=== PATIENT | female | born 1930 | race Caucasian/White ===

== ENCOUNTER 2017-04-24 04:27 | Observation (INO) ==
--- NOTE | 2017-04-24 05:58 | Emergency Department Note ---
Disposition Clinical Impression: Nausea, History of seizures, Hyponatremia Medication side effect Qualifiers: Encounter type: initial encounter Qualified Code(s): T88.7XXA - Unspecified adverse effect of drug or medicament, initial encounter Disposition: Admitted As Inpatient Condition: Fair Referrals: Foster Villarreal MD [Primary Care Provider] - Forms: Work/School Release, ED Satisfaction Letter General Adult HPI - General Chief complaint: ED General Medical Stated complaint: multiple complaints s/p med change Time Seen by Provider: 04/24/17 05:42 Source: patient Mode of arrival: ambulatory Limitations: no limitations Nursing Notes Reviewed: Yes Vital Signs Reviewed: Yes - History of Present Illness HPI Narrative: 86-year-old female with a history of heart disease, epileptic seizures presents for evaluation of multiple complaints including diffuse muscle aches, nausea, epigastric discomfort as well as a headache. Patient states that the symptoms started immediately upon medication. This was confirmed by the family at bedside. Patient denies any fevers or shortness of breath. No cough. Patient' s been on Dilantin chronically for over 60 years. Patient wanted to get off the Dilantin and was seen by Dr. Posada neurology. Dr. Posada prescribed Trileptal. Patient states that she has had 2 days worth of Trileptal and notes the symptoms started. No seizure activity. Pain Scale: 7 - Related Data Home Medications Medication Instructions Recorded Confirmed Aspirin [Lo-Dose Aspirin EC] 81 mg PO 05/05/16 05/05/16 Cetirizine HCl [Zyrtec] 10 mg PO 05/05/16 Esomeprazole Magnesium [Nexium] 05/05/16 05/05/16 LORazepam [Ativan] 2.5 mg PO 05/05/16 Lisinopril [Zestril] 2.5 mg PO DAILY 05/05/16 05/05/16 Phenytoin Sodium Extended 100 mg PO 05/05/16 [Dilantin] Potassium Chloride [Potassium 05/05/16 Chloride 10 mEq/100mL] Rosuvastatin [Crestor] 40 mg PO HS 05/05/16 05/05/16 Previous Rx's Medication Instructions Recorded Ciprofloxacin [Cipro] 500 mg PO BID #20 tablet 05/05/16 Allergies Allergy/AdvReac Type Severity Reaction Status Date / Time cephalexin [From Keflex] Allergy See Verified 08/02/16 11:23 Comments clarithromycin [From Biaxin] Allergy See Verified 01/24/16 16:17 Comments acetaminophen AdvReac Dizziness Verified 05/05/16 11:23 [From Tylenol-Codeine #3] codeine AdvReac Dizziness Verified 05/05/16 11:23 [From Tylenol-Codeine #3] All systems ED: reviewed and negative except as stated. Constitutional: Reports: as per HPI. Denies: fever Eyes: Reports: as per HPI ENT ED: Reports: as per HPI Cardiovascular: Reports: as per HPI. Denies: chest pain Respiratory: Reports: as per HPI Gastrointestinal: Reports: as per HPI, nausea. Denies: abdominal pain, vomiting Genitourinary: Reports: as per HPI Musculoskeletal: Reports: as per HPI Integumentary: Reports: as per HPI Neurological: Reports: as per HPI Psychiatric: Reports: as per HPI Endocrine: Reports: as per HPI Hematological/Lymphatic: Reports: as per HPI Allergic/Immunologic: Reports: as per HPI Past Medical History - Past Medical History Medical history: Reports: GERD, hyperlipidemia, hypertension, seizures - Social History Smoking Status: Never smoker Smokeless Tobacco Status: No Alcohol use: Reports: none Drug use: Reports: none Physical Exam - General Limitations: no limitations General appearance: alert, in no apparent distress - Head Head exam: atraumatic, normocephalic, normal inspection - Eye Eye exam: Present: normal appearance, EOMI - ENT ENT exam: normal exam, mucous membranes moist - Neck Neck exam: Present: normal inspection - Chest Chest inspection: Present: normal inspection, symmetric chest wall rise - Respiratory Respiratory exam: Present: normal lung sounds bilaterally. Absent: respiratory distress - Cardiovascular Cardiovascular exam: Present: regular rate - Abdominal Exam Abdominal exam: Present: soft, Non-Tender - Extremities Exam Extremities exam: Present: normal inspection. Absent: pedal edema - Back Exam Back exam: Present: normal inspection - Neurological Exam Neurological exam: Present: alert, oriented X3 - Skin Skin exam: Present: warm, dry, intact, normal color Course Course Narrative: Patient seen and examined. Patient in no acute distress. Patient's symptoms possibly related to recent medication change however the patient does have risk factors and been having vague complaints with nausea as well as epigastric discomfort. Patient will get basic lab work including a troponin as well as EKG. Patient also gets symptomatic treatment with Zofran. Family at bedside agree with current plan of care. - Reevaluation(s) Reevaluation #1: Patient seen and examined. Patient is in no acute distress. Patient does have significant hyponatremia. Possibly related to medications. Given the degree of the patient's hyponatremia and her vague generalized complaints patient will be admitted to the hospitalist service for further evaluation. UA as well as urine Na urine Osm, urine Cr. Time: 06:39 Reevaluation #2: Updated family on plan of care. State that her medicine does have side effects of low sodium. QUESTIONS were answered. Time: 07:41 - Consultations Consultation #1: Hospitalist accepted the patient. Recommended to consult neurology regarding the patient's seizure medications. Will page neurology and place a consult. Time: 07:27 Consultation #2: Spoke with neurology, Dr. Villegas who stated that Trileptal does cause hyponatremia. States he will see the patient. Time: 07:40 Vital Signs Temperature 97.4 F L 04/24/17 04:30 Pulse Rate 67 04/24/17 04:30 Respiratory Rate 16 04/24/17 04:30 Blood Pressure 157/79 04/24/17 04:30 O2 Sat by Pulse Oximetry 96 04/24/17 04:30 Temperature 97.4 F L 04/24/17 04:30 Pulse Rate 67 04/24/17 04:30 Respiratory Rate 16 04/24/17 04:30 Blood Pressure 157/79 04/24/17 04:30 O2 Sat by Pulse Oximetry 96 04/24/17 04:30 Oxygen Delivery Oxygen Delivery Room Air Medical Decision Making - [facility] Narrative Medical decision making narrative: 86-year-old female presents for evaluation of multiple complaints. Patient was complaining of some nausea some epigastric discomfort. Noted symptom onset was possibly related to change and new medication. Patient's chronically on Dilantin and has transitioned to Trileptal. Patient states that she has had some muscle aches and fevers and nausea. Given the patient's history and vague complaints a cardiac evaluation was warranted. Patient's EKG shows no acute abnormalities. Patient's troponin was negative. Patient's electrolytes do show that she has chronic we hyponatremic however this is worse than prior evaluations. Patient will be admitted to the hospitalist service for further evaluation monitoring. Patient will likely need electrolyte replacement and monitoring. Family at bedside as well as patient agreed. Patient was treated with Zofran as well as a GI cocktail as for her reflux. Patient did not receive a chest x-ray she has not been having any respiratory complaints. No fevers or cough. Spoke with neurology who stated that Trileptal does cause hyponatremia. Patient will be admitted for electrolyte monitoring and replacement. - Lab Data Lab results reviewed: Yes I reviewed the patient's lab results. Result diagrams: 04/24/17 06:03 04/24/17 06:03 Lab Results 04/24/17 04/24/17 04/24/17 Range/Units 06:03 06:03 06:03 WBC 12.0 H (4.3-11.1) K/mcL RBC 4.31 (3.82-4.97) M/mcL Hgb 13.5 (11.5-15.4) g/dL Hct 38.5 (35.3-44.9) % MCV 89.3 (83.0-100.0) fL MCH 31.3 (28.0-33.3) pg MCHC 35.1 (31.6-35.5) g/dL RDW 11.6 (11.5-14.5) % Plt Count 223 (140-400) K/mcL MPV 9.1 L (9.4-12.4) fL Immature Gran % 0.2 (0-4) % Seg Neutrophils % 89.1 % Lymphocytes % 6.0 % Monocytes % 4.4 % Eosinophils % 0.1 % Basophils % 0.2 % Neutrophils # 10.7 H (1.6-8.9) K/mcL Lymphocytes # 0.7 (0.6-4.6) K/mcL Monocytes # 0.5 (0.0-1.3) K/mcL Eosinophils # 0.0 (0.0-0.6) K/mcL Basophils # 0.0 (0.0-0.2) K/mcL Sodium 123 L (136-145) mEq/L Potassium 4.0 (3.5-4.5) mEq/L Chloride 93 L (98-109) mEq/L Carbon Dioxide 24 (19-29) mEq/L BUN 7 (7-20) mg/dL Creatinine 0.62 (0.57-1.11) mg/dL Est GFR ( Amer) > 60 (> 60) Est GFR (Non-Af Amer) > 60 (> 60) BUN/Creatinine Ratio 11 (6-26) Glucose 126 H (70-99) mg/dL Calculated Osmolality 256 L (280-300) Calcium 9.0 (8.6-10.8) mg/dL Troponin I 0.00 (0-0.03) ng/mL Urine Color (Yellow) Urine Clarity (Clear) Urine pH (5.0-8.0) pH Units Ur Specific [place] (1.010-1.025) Urine Protein (Neg-Trace) mg/dL Urine Glucose (UA) (Normal) mg/dL Urine Ketones (Negative) mg/dL Urine Blood (Negative) Urine Nitrite (Negative) Urine Bilirubin (Negative) Urine Urobilinogen (Normal) mg/dL Ur Leukocyte Esterase (Negative) Urine Microscopic RBC (0-3) per hpf Urine Microscopic WBC (0-3) per hpf Ur Squamous Epith Cells (None-Few) per lpf Urine Bacteria (None-Few) per hpf Hyaline Casts (None-Few) per lpf 04/24/17 Range/Units 07:04 WBC (4.3-11.1) K/mcL RBC (3.82-4.97) M/mcL Hgb (11.5-15.4) g/dL Hct (35.3-44.9) % MCV (83.0-100.0) fL MCH (28.0-33.3) pg MCHC (31.6-35.5) g/dL RDW (11.5-14.5) % Plt Count (140-400) K/mcL MPV (9.4-12.4) fL Immature Gran % (0-4) % Seg Neutrophils % % Lymphocytes % % Monocytes % % Eosinophils % % Basophils % % Neutrophils # (1.6-8.9) K/mcL Lymphocytes # (0.6-4.6) K/mcL Monocytes # (0.0-1.3) K/mcL Eosinophils # (0.0-0.6) K/mcL Basophils # (0.0-0.2) K/mcL Sodium (136-145) mEq/L Potassium (3.5-4.5) mEq/L Chloride (98-109) mEq/L Carbon Dioxide (19-29) mEq/L BUN (7-20) mg/dL Creatinine (0.57-1.11) mg/dL Est GFR ( Amer) (> 60) Est GFR (Non-Af Amer) (> 60) BUN/Creatinine Ratio (6-26) Glucose (70-99) mg/dL Calculated Osmolality (280-300) Calcium (8.6-10.8) mg/dL Troponin I (0-0.03) ng/mL Urine Color Yellow (Yellow) Urine Clarity Cloudy A (Clear) Urine pH 7.0 (5.0-8.0) pH Units Ur Specific [place] 1.017 (1.010-1.025) Urine Protein Negative (Neg-Trace) mg/dL Urine Glucose (UA) Normal (Normal) mg/dL Urine Ketones Trace H (Negative) mg/dL Urine Blood Trace H (Negative) Urine Nitrite Negative (Negative) Urine Bilirubin Negative (Negative) Urine Urobilinogen Normal (Normal) mg/dL Ur Leukocyte Esterase Negative (Negative) Urine Microscopic RBC 0-3 (0-3) per hpf Urine Microscopic WBC 0-3 (0-3) per hpf Ur Squamous Epith Cells Many H (None-Few) per lpf Urine Bacteria None Seen (None-Few) per hpf Hyaline Casts None Seen (None-Few) per lpf - EKG Data EKG #1 EKG attestation: Yes I reviewed and interpreted this EKG. EKG shows normal: sinus rhythm Rate: normal Rhythm: NSR [place]/QRS: normal Q waves: aVR, v1, v2 Interpretation: no acute changes S.B.A.R. - S.B.A.R. Situation: Demographics Background: Presenting Complaint Assessment: Vital Signs, Course and respsone to treatment Recommendation: Barrier(s) to disposition, Recommendation based on pending studies, treatments, or consults S.B.A.R. Report Given to: Dr. Baig S.B.A.RFadumo Repor Time: 07:27 Attestation Statement - Attestation Attestation: I, Clarke Hardin MD, personally evaluated this patient and discussed their management with the resident physician. I reviewed the resident's note and agree with the documented findings, medical decision making, and plan of care. 86-year-old female presents to the emergency department with multiple vague complaints. She has a long history of seizure disorder and states that she has been on Dilantin for 60 years. Earlier this week her Dilantin was discontinued and she was switched to a different medication. She reports that when she started taking the new medication she developed nausea and upper abdominal discomfort. She complains of some generalized body aches. Subjective fever. She feels this is related to the medication. On examination patient is a well-developed well-nourished elderly female in no acute distress. She is alert and oriented 3. There is no cyanosis or diaphoresis. Chest is nontender to palpation. Breath sounds are clear and equal bilaterally. Heart regular rate and rhythm. Abdomen soft and nontender with normal bowel sounds. Labs reviewed. Hyponatremia with sodium of 123 noted. Hospitalist consulted for admission.
[2017-04-24] MEDS ORDERED: Ondansetron ODT 4 MG TAB.RAPDIS SL ONE (05:59)
[2017-04-24 06:11] LABS: Basophils % 0.2 %; Eosinophils % 0.1 %; Hematocrit 38.5 % (35.3-44.9); Hemoglobin 13.5 g/dL (11.5-15.4); Immature Granulocytes % 0.2 % (0-4); Lymphocytes # 0.7 K/mcL (0.6-4.6); Mean Corpuscular HGB Conc 35.1 g/dL (31.6-35.5); Mean Corpuscular Hemoglobin 31.3 pg (28.0-33.3); Mean Corpuscular Volume 89.3 fL (83.0-100.0); Mean Platelet Volume 9.1 fL (9.4-12.4); Monocytes # 0.5 K/mcL (0.0-1.3); Monocytes % 4.4 %; Neutrophils # 10.7 K/mcL (1.6-8.9); Platelet Count 223 K/mcL (140-400); Red Blood Count 4.31 M/mcL (3.82-4.97); Red Cell Distribution Width 11.6 % (11.5-14.5); Segmented Neutrophils % 89.1 %
[2017-04-24] MEDS ORDERED: GI Cocktail 40 ML EACH PO ONE (06:15)
[2017-04-24 06:22] LABS: BUN/Creatinine Ratio 11 (6-26); Blood Urea Nitrogen 7 mg/dL (7-20); Carbon Dioxide 24 mEq/L (19-29); Chloride 93 mEq/L (98-109); Glucose 126 mg/dL (70-99); Osmolality,Calculated 256 (280-300); Sodium 123 mEq/L (136-145); eGFR For African Americans > 60 (> 60); eGFR For Non-African Americans > 60 (> 60)
[2017-04-24] MEDS ORDERED: 0.9 % Sodium Chloride 1,000 ML IVC ONE (06:38)
[2017-04-24 07:10] LABS: Bilirubin,Urine Negative (Negative); Blood,Urine Trace (Negative); Clarity,Urine Cloudy (Clear); Color,Urine Yellow (Yellow); Glucose,Urine (UA) Normal (Normal); Ketones,Urine Trace mg/dL (Negative); Leukocyte Esterase,Urine Negative (Negative); Nitrite,Urine Negative (Negative); Protein,Urine Negative (Neg-Trace); Specific Gravity,Urine 1.017 (1.010-1.025); Urobilinogen,Urine Normal (Normal)
[2017-04-24 07:13] LABS: Bacteria,Urine None Seen per hpf (None-Few); Hyaline Casts,Urine None Seen per lpf (None-Few); RBC,Urine 0-3 per hpf (0-3); Squamous Epithelial Cell,Urine Many per lpf (None-Few); WBC,Urine 0-3 per hpf (0-3)
[2017-04-24] MEDS ORDERED: Naloxone 0.4 MG/ML INJ IVP PRN (09:18)
[2017-04-24] MEDS ORDERED: Ondansetron ODT 4 MG TAB.RAPDIS SL PRN (09:24)
[2017-04-24] MEDS ORDERED: *HR* LORazepam 2 MG/ML VIAL IVP PRN (09:31)
[2017-04-24] MEDS ORDERED: GI Cocktail 40 ML EACH PO PRN (09:33)
[2017-04-24 09:43] LABS: Magnesium 1.5 mg/dL (1.6-2.6)
--- NOTE | 2017-04-24 09:46 | Internal Med History&Physical ---
Date of Encounter: 04/24/17 Time of Encounter: 09:00 Assessment and Plan (1) DVT prophylaxis Current visit: Yes Status: Acute Heparin subcutaneously (2) Hypertension Current visit: Yes Status: Acute Continue home medication. Closely monitor BP Qualifiers: Hypertension type: essential hypertension Qualified Code(s): I10 - Essential (primary) hypertension (3) CAD (coronary artery disease) Current visit: Yes Status: Acute Stable, denies chest pain. Continue home medications Qualifiers: Coronary Disease-Associated Artery/Lesion type: [place] artery [place] vs. transplanted heart: lime heart Associated angina: without angina Qualified Code(s): I25.10 - Atherosclerotic heart disease of lime coronary artery without angina pectoris (4) History of seizures Current visit: Yes Status: Acute The patient has history of seizure. No recent seizure activity for years. Will consult neurology. Place ativan IV as needed for seizure. (5) Hyponatremia Current visit: Yes Status: Acute Etiology is undetermined. Patient appears euvolemic. We will place patient on low rate normal saline and fluid restriction. - Closely monitor sodium level. Goal of correction is 8-10 mEq increase in first 24 hours. (6) Medication side effect Current visit: Yes Status: Acute We will hold Oxcarbazepin, closely monitor vital sign. Supportive and symptomatic treatment. Neurology consult for medication adjustment. Qualifiers: Encounter type: initial encounter Qualified Code(s): T88.7XXA - Unspecified adverse effect of drug or medicament, initial encounter Internal Medicine - H&P: HPI Chief complaint: Multiple complaints Admitted From: Home Plans for Post Hospital Care: Home History of present illness: Ms. Nicolas is a 86 year old female presented to the ER for multiple complaint. Patient has history of seizure and was on Dilantin for about 60 years. Patient has developed neuropathy and was sought cousin by [place]. Her Dilantin has been changed to oxycarbazepin by her neurologist Dr Posada. Patient said after taking the new medication, she feels dizzy, weak, had a shaking, sweating, heartburn and the reflex, mild nausea. Patient came to ER and was found sodium low to 123. Patient denies polydipsia. She was admitted for further evaluation. Past Med Surg Social Fam HX - Past Medical History Medical history: GERD, hyperlipidemia, hypertension, seizures - Social History Smoking Status: Never smoker Smokeless Tobacco Status: No Alcohol use: none Drug use: none Internal Medicine - H&P: Meds Aspirin [Lo-Dose Aspirin EC] 81 mg PO 05/05/16 [History] Cetirizine HCl [Zyrtec] 10 mg PO 05/05/16 [History] Ciprofloxacin [Cipro] 500 mg PO BID #20 tablet 05/05/16 [Rx] Esomeprazole Magnesium [Nexium] 05/05/16 [History] LORazepam [Ativan] 2.5 mg PO 05/05/16 [History] Lisinopril [Zestril] 2.5 mg PO DAILY 05/05/16 [History] Phenytoin Sodium Extended [Dilantin] 100 mg PO 05/05/16 [History] Potassium Chloride [Potassium Chloride 10 mEq/100mL] 05/05/16 [History] Rosuvastatin [Crestor] 40 mg PO HS 05/05/16 [History] Allergies cephalexin [From Keflex] Allergy (Verified 05/05/16 11:23) See Comments clarithromycin [From Biaxin] Allergy (Verified 01/24/16 16:17) See Comments acetaminophen [From Tylenol-Codeine #3] Adverse Reaction (Verified 05/05/16 11: 23) Dizziness codeine [From Tylenol-Codeine #3] Adverse Reaction (Verified 05/05/16 11:23) Dizziness All Systems PM: A 10-system review of systems was performed and is negative for pertinent findings except as documented above in the HPI. - Constitutional Vitals: Temp Pulse Resp BP Pulse Ox 97.4 F L 67 18 141/75 96 04/24/17 04:30 04/24/17 04:30 04/24/17 08:56 04/24/17 08:56 04/24/17 04:30 General appearance: Present: A&O X 3, no acute distress, answers questions appropriately - Head Head exam: Present: atraumatic, normocephalic - Eye Eye exam: Present: PERRL, conjuntiva pink, sclera anicteric Pupils: Present: PERRL - Neck Neck exam general surgery: Present: supple, trachea midline. Absent: lymphadenopathy - Respiratory Respiratory exam: Present: CTAB. Absent: accessory muscle use, rales, rhonchi, wheezes - Cardiovascular Cardiovascular exam: Present: RRR, +S1, +S2. Absent: diastolic murmur, gallop, rubs, systolic murmur - GI/Abdominal GI/Abdominal exam: Present: normal bowel sounds, soft, no peritoneal signs. Absent: distended, tenderness - Extremities Exam Extremities exam: Present: warm, radial pulses palpable and symetrical. Absent : calf tenderness, cyanotic, pedal edema - Neurological Exam Neurological exam: Present: CN II-XII intact, oriented X3, no focal deficits. Absent: pronater drift, facial droop, speech deficit - Skin Skin exam: Present: dry, intact Internal Med - H&P Results - Labs CBC & Chem 7: 04/24/17 06:03 04/24/17 06:03
[2017-04-24] MEDS: 0.9 % Sodium Chloride 1,000 ML IVC SCH (09:58)
[2017-04-24] MEDS: Aspirin Enteric Coated 81 MG Tablet PO SCH (09:59)
[2017-04-24] MEDS: Loratadine 10 MG TABLET PO SCH (09:59)
[2017-04-24 10:03] LABS: Creatinine,Urine 48 mg/dL
[2017-04-24 10:24] LABS: Osmolality,Urine 544 mOsm/kg (300-1090)
[2017-04-24] MEDS ORDERED: Fosphenytoin 1,000 MG in D5% in Water 50 ML IVPB ONE (10:37)
--- NOTE | 2017-04-24 10:58 | Neurology - Consult Note ---
Date of Encounter: 04/24/17 Time of Encounter: 10:49 Assessment and Plan (1) Hyponatremia Current Visit: Yes Status: Acute 86-year old woman with epilepsy, on chronic dilatin, now recently changed to trileptal, admitted with hyponatremia, likely secondary to trileptal treatment ( known adverse effect). Hyponatremia correction per hospitalist. (2) History of seizures Current Visit: Yes Status: Acute Patient prefers to go back to dilantin. Will load her with IV fosphenytoin, 1g , and then follow it up with dilanting 300 mg po qhs. Will check dilantin level in the morning. Upon discharge, patient can be on 300 mg regular release tablets. Follow-up with Dr. Posada in the outpatient setting in the next week. 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 Gabapentin 300 qhs for symptom control. PT/OT for gait stability training and walker, if needed. History of Present Illness Chief complaint: feeling dizzy and unsteady HPI: Ms. Nicolas is a 86 year old female with prior history of epilepsy ( multiple seizure types, including grand mal), On dilantin for the last 60 years with good control. She started noticing some numbness in the feet recently, accompanied with burning and "pins and needles" in the last few months. She was worried if dilantin was causing this and wanted to come off of dilantin. She saw Dr. Posada in the outpatient clinic who advocated the switch to tripleptal. After she took the medication for 2 days, she felt dizzy, lightheaded and not feeling well. No fevers, chills, infections. She was found to have a low sodium of 120 and was admitted to the hospital. She is wondering if she should go back to dilantin. She states that her feet are numb and that her finger tips are getting numb as well. She has some unsteadiness, but has not had any falls. Past Med Surg Social Fam HX - Past Medical History Medical history: GERD, hyperlipidemia, hypertension, seizures Psychiatric history: anxiety - Past Surgical History Surgical History: cholecystectomy - Social History Smoking Status: Never smoker Smokeless Tobacco Status: No Alcohol use: none Drug use: none - Family History Mother Living Status: Age at : 96 Hx Family Neurologic Disorders: Yes (stroke) Hx Family Medical Disorders: Yes (cataracts) Father Living Status: Age at : 70 Hx Family Cardiac Disorders: Yes Hx Family Cancer: Yes Medications and Allergies Aspirin [Lo-Dose Aspirin EC] 81 mg PO DAILY 05/05/16 [History] Cetirizine HCl [Zyrtec] 10 mg PO DAILY 05/05/16 [History] Esomeprazole Magnesium [Nexium] 40 mg PO DAILY 05/05/16 [History] LORazepam [Ativan] 0.5 mg PO DAILY PRN 05/05/16 [History] Lisinopril [Zestril] 2.5 mg PO DAILY 05/05/16 [History] Phenytoin Sodium Extended [Dilantin] 100 mg PO TID 05/05/16 [History] Rosuvastatin [Crestor] 40 mg PO DAILY 05/05/16 [History] Ergocalciferol (VITAMIN D2) [Vitamin D2] 50,000 unit PO MO 04/24/17 [History] OXcarbazepine [Trileptal] 150 mg PO BID 04/24/17 [History] Polyethylene Glycol 3350 [MiraLAX] 17 gm PO DAILY 04/24/17 [History] Potassium Chloride [Klor-Con 10] 10 meq PO BID 04/24/17 [History] Allergies cephalexin [From Keflex] Allergy (Verified 05/05/16 11:23) See Comments clarithromycin [From Biaxin] Allergy (Verified 01/24/16 16:17) See Comments acetaminophen [From Tylenol-Codeine #3] Adverse Reaction (Verified 05/05/16 11: 23) Dizziness codeine [From Tylenol-Codeine #3] Adverse Reaction (Verified 05/05/16 11:23) Dizziness All Systems: A 10-system review of systems was performed and is negative for pertinent findings except as documented above in the HPI. - Constitutional Constitutional ROS IM: as per HPI Physical Examination - Vital Signs Vital Signs: Initial Vital Signs Temp Pulse Resp BP Pulse Ox 97.4 F L 67 16 157/79 96 04/24/17 04:30 04/24/17 04:30 04/24/17 04:30 04/24/17 04:30 04/24/17 04:30 Vital Signs - 24 hr 04/24/17 04:30 04/24/17 08:56 04/24/17 09:41 Temperature 97.4 F L Pulse Rate 67 Respiratory Rate 16 18 Blood Pressure 157/79 141/75 O2 Sat by Pulse Oximetry 96 96 04/24/17 09:43 Temperature 98.1 F Pulse Rate 67 Respiratory Rate 15 Blood Pressure 155/65 O2 Sat by Pulse Oximetry 96 - Exam Exam: Frail, thin woman of stated age, pleasant and cooperative. - Constitutional General appearance: comfortable - Neurologic Sensorimotor examination: other (decreased distally for light touch, pin prick and vibration) Detailed motor examination: grossly full strength in all extremities Motor examination - right side: 5/5: deltoids (appropriate for age and condition ), biceps, triceps, wrist flexion, wrist extension, remote sensing analyst, hip flexors, tibialis Anterior, quadriceps, toe extension (EHL), plantarflexion Motor examination - left side: 5/5: deltoids (appropriate for age and condition) , biceps, triceps, wrist flexion, wrist extension, hip flexors, remote sensing analyst, quadriceps , tibialis Anterior, toe extension (EHL), plantarflexion Detailed sensory examination: other (decreased distally in upper and lower extremities) Reflex and gait examination: other (areflexia) Reflexes: Biceps: 0, Triceps: 0, Brachioradialis: 0, Patella: 0, Achilles: 0 Mental Status Examination: awake, alert, oriented to person, oriented to place, oriented to time, follows commands appropriately, answers questions appropriately, no agnosia, no aphasia, no aproxia Cranial nerve examination: PERRL, EOMI, visual mendiola intact, corneal reflexes brisk symmetrically, sensory to face intact, mastication intact, no facial asymmetry is present, no dysarthria, hearing is intact symmetrically, soft palate elevates bilaterally upon phonation, gag reflex intact, flexes SCM and trapezius muscles symmetrically with full power, tongue protrudes midline, no atrophy or facial fasiculations present Cerebellar examination: no dysmetria, performs finger to nose and heel to yung symmetrically without ataxia, no gait ataxia, no truncal ataxia, no difficulty with rapid alternating movements Results - Laboratory Findings CBC and BMP: 04/24/17 06:03 04/24/17 06:03 Abnormal lab findings: Abnormal lab results WBC 12.0 K/mcL (4.3-11.1) H 04/24/17 06:03 MPV 9.1 fL (9.4-12.4) L 04/24/17 06:03 Neutrophils # 10.7 K/mcL (1.6-8.9) H 04/24/17 06:03 Sodium 123 mEq/L (136-145) L 04/24/17 06:03 Chloride 93 mEq/L (98-109) L 04/24/17 06:03 Glucose 126 mg/dL (70-99) H 04/24/17 06:03 Calculated Osmolality 256 (280-300) L 04/24/17 06:03 Magnesium 1.5 mg/dL (1.6-2.6) L 04/24/17 06:03 Urine Clarity Cloudy (Clear) A 04/24/17 07:04 Urine Ketones Trace mg/dL (Negative) H 04/24/17 07:04 Urine Blood Trace (Negative) H 04/24/17 07:04 Ur Squamous Epith Cells Many per lpf (None-Few) H 04/24/17 07:04 Laboratory Results WBC 12.0 K/mcL (4.3-11.1) H 04/24/17 06:03 RBC 4.31 M/mcL (3.82-4.97) 04/24/17 06:03 Hgb 13.5 g/dL (11.5-15.4) 04/24/17 06:03 Hct 38.5 % (35.3-44.9) 04/24/17 06:03 MCV 89.3 fL (83.0-100.0) 04/24/17 06:03 MCH 31.3 pg (28.0-33.3) 04/24/17 06:03 MCHC 35.1 g/dL (31.6-35.5) 04/24/17 06:03 RDW 11.6 % (11.5-14.5) 04/24/17 06:03 Plt Count 223 K/mcL (140-400) 04/24/17 06:03 MPV 9.1 fL (9.4-12.4) L 04/24/17 06:03 Immature Gran % 0.2 % (0-4) 04/24/17 06:03 Seg Neutrophils % 89.1 % 04/24/17 06:03 Lymphocytes % 6.0 % 04/24/17 06:03 Monocytes % 4.4 % 04/24/17 06:03 Eosinophils % 0.1 % 04/24/17 06:03 Basophils % 0.2 % 04/24/17 06:03 Neutrophils # 10.7 K/mcL (1.6-8.9) H 04/24/17 06:03 Lymphocytes # 0.7 K/mcL (0.6-4.6) 04/24/17 06:03 Monocytes # 0.5 K/mcL (0.0-1.3) 04/24/17 06:03 Eosinophils # 0.0 K/mcL (0.0-0.6) 04/24/17 06:03 Basophils # 0.0 K/mcL (0.0-0.2) 04/24/17 06:03 Sodium 123 mEq/L (136-145) L 04/24/17 06:03 Potassium 4.0 mEq/L (3.5-4.5) 04/24/17 06:03 Chloride 93 mEq/L (98-109) L 04/24/17 06:03 Carbon Dioxide 24 mEq/L (19-29) 04/24/17 06:03 BUN 7 mg/dL (7-20) 04/24/17 06:03 Creatinine 0.62 mg/dL (0.57-1.11) 04/24/17 06:03 Est GFR ( Amer) > 60 (> 60) 04/24/17 06:03 Est GFR (Non-Af Amer) > 60 (> 60) 04/24/17 06:03 BUN/Creatinine Ratio 11 (6-26) 04/24/17 06:03 Glucose 126 mg/dL (70-99) H 04/24/17 06:03 Calculated Osmolality 256 (280-300) L 04/24/17 06:03 Calcium 9.0 mg/dL (8.6-10.8) 04/24/17 06:03 Magnesium 1.5 mg/dL (1.6-2.6) L 04/24/17 06:03 Troponin I 0.00 ng/mL (0-0.03) 04/24/17 06:03 Urine Color Yellow (Yellow) 04/24/17 07:04 Urine Clarity Cloudy (Clear) A 04/24/17 07:04 Urine pH 7.0 pH Units (5.0-8.0) 04/24/17 07:04 Ur Specific [place]son 1.017 (1.010-1.025) 04/24/17 07:04 Urine Protein Negative mg/dL (Neg-Trace) 04/24/17 07:04 Urine Glucose (UA) Normal mg/dL (Normal) 04/24/17 07:04 Urine Ketones Trace mg/dL (Negative) H 04/24/17 07:04 Urine Blood Trace (Negative) H 04/24/17 07:04 Urine Nitrite Negative (Negative) 04/24/17 07:04 Urine Bilirubin Negative (Negative) 04/24/17 07:04 Urine Urobilinogen Normal mg/dL (Normal) 04/24/17 07:04 Ur Leukocyte Esterase Negative (Negative) 04/24/17 07:04 Urine Microscopic RBC 0-3 per hpf (0-3) 04/24/17 07:04 Urine Microscopic WBC 0-3 per hpf (0-3) 04/24/17 07:04 Ur Squamous Epith Cells Many per lpf (None-Few) H 04/24/17 07:04 Urine Bacteria None Seen per hpf (None-Few) 04/24/17 07:04 Hyaline Casts None Seen per lpf (None-Few) 04/24/17 07:04 Urine Osmolality 544 mOsm/kg (300-1090) 04/24/17 07:04 Urine Creatinine 48 mg/dL 04/24/17 07:04 Urine Sodium 144.0 mEq/L 04/24/17 07:04 Consult Discharge Plan - Plan Referrals: Foster Villarreal MD [Primary Care Provider] -
[2017-04-24] MEDS ORDERED: *HR* LORazepam 1 MG TABLET PO ONE (12:43)
[2017-04-24 12:52] LABS: BUN/Creatinine Ratio 10 (6-26); Blood Urea Nitrogen 6 mg/dL (7-20); Calcium 8.9 mg/dL (8.6-10.8); Carbon Dioxide 21 mEq/L (19-29); Chloride 96 mEq/L (98-109); Glucose 126 mg/dL (70-99); Osmolality,Calculated 263 (280-300); Sodium 127 mEq/L (136-145); eGFR For African Americans > 60 (> 60); eGFR For Non-African Americans > 60 (> 60)
[2017-04-24] MEDS: *HR* Heparin 5,000 UNIT/ML VIAL SQ SCH (17:39)
[2017-04-24 18:32] LABS: BUN/Creatinine Ratio 9 (6-26); Blood Urea Nitrogen 6 mg/dL (7-20); Calcium 8.5 mg/dL (8.6-10.8); Carbon Dioxide 25 mEq/L (19-29); Chloride 95 mEq/L (98-109); Glucose 156 mg/dL (70-99); Osmolality,Calculated 263 (280-300); Potassium 3.3 mEq/L (3.5-4.5); Sodium 126 mEq/L (136-145); eGFR For African Americans > 60 (> 60); eGFR For Non-African Americans > 60 (> 60)
[2017-04-24] MEDS: Gabapentin 300 MG CAPSULE PO SCH (22:00)
[2017-04-25 01:28] LABS: Basophils % 0.2 %; Eosinophils % 0.3 %; Hematocrit 35.1 % (35.3-44.9); Immature Granulocytes % 0.5 % (0-4); Lymphocytes # 1.4 K/mcL (0.6-4.6); Mean Corpuscular HGB Conc 34.2 g/dL (31.6-35.5); Mean Corpuscular Hemoglobin 30.8 pg (28.0-33.3); Mean Corpuscular Volume 90.2 fL (83.0-100.0); Mean Platelet Volume 9.4 fL (9.4-12.4); Monocytes # 0.6 K/mcL (0.0-1.3); Monocytes % 9.5 %; Neutrophils # 4.4 K/mcL (1.6-8.9); Platelet Count 220 K/mcL (140-400); Red Blood Count 3.89 M/mcL (3.82-4.97); Red Cell Distribution Width 11.9 % (11.5-14.5); Segmented Neutrophils % 67.5 %
[2017-04-25 01:41] LABS: BUN/Creatinine Ratio 10 (6-26); Blood Urea Nitrogen 6 mg/dL (7-20); Calcium 8.5 mg/dL (8.6-10.8); Carbon Dioxide 27 mEq/L (19-29); Chloride 96 mEq/L (98-109); Glucose 94 mg/dL (70-99); Osmolality,Calculated 259 (280-300); Potassium 3.3 mEq/L (3.5-4.5); Sodium 126 mEq/L (136-145); eGFR For African Americans > 60 (> 60); eGFR For Non-African Americans > 60 (> 60)
[2017-04-25] MEDS: 0.9 % Sodium Chloride 1,000 ML IVC SCH (03:09)
[2017-04-25] MEDS: *HR* Heparin 5,000 UNIT/ML VIAL SQ SCH ×2 (06:01→17:49)
[2017-04-25 07:36] LABS: BUN/Creatinine Ratio 8 (6-26); Calcium 8.4 mg/dL (8.6-10.8); Carbon Dioxide 27 mEq/L (19-29); Chloride 98 mEq/L (98-109); Glucose 96 mg/dL (70-99); Osmolality,Calculated 269 (280-300); Potassium 3.5 mEq/L (3.5-4.5); Sodium 131 mEq/L (136-145); eGFR For African Americans > 60 (> 60); eGFR For Non-African Americans > 60 (> 60)
[2017-04-25 07:38] LABS: Blood Urea Nitrogen 5 mg/dL (7-20)
[2017-04-25] MEDS: Aspirin Enteric Coated 81 MG Tablet PO SCH (07:41)
[2017-04-25] MEDS: Loratadine 10 MG TABLET PO SCH (07:41)
--- NOTE | 2017-04-25 09:02 | Neurology Progress Note ---
Date of Encounter: 04/25/17 Time of Encounter: 08:59 Assessment and Plan (1) Hyponatremia Current Visit: Yes Status: Acute 86-year old woman with epilepsy, on chronic dilatin, now recently changed to trileptal, admitted with hyponatremia, likely secondary to trileptal treatment ( known adverse effect). Hyponatremia correction per hospitalist. Doing better, last Na was 131. Will need to correct to normal levels. (2) History of seizures Current Visit: Yes Status: Acute Patient prefers to go back to dilantin. Will load her with IV fosphenytoin, 1g , and then follow it up with dilanting 300 mg po qhs. Will check dilantin level in the morning. Upon discharge, patient can be on 300 mg regular release tablets. Tolerating dilantin well. Level 16.9 today. Follow-up with Dr. Posada in the outpatient setting in the next week. 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 Gabapentin 300 qhs for symptom control. Tolerating gabapentin very well. PT/OT for gait stability training and walker, if needed. call if questions. Subjective Principal diagnosis: hyponatremia, dizziness, neuropathy Interval history: Patient is doing better today. She still has some dizziness when standing - that has been there even before the start of gabapentin. Overall she is in good spirits and doing well. She is eating well today. Objective - Constitutional Vitals: Temp Pulse Resp BP Pulse Ox 98.6 F 79 15 135/79 93 04/25/17 07:25 04/25/17 07:25 04/25/17 07:25 04/25/17 07:25 04/25/17 07:47 Vital Signs - 24 hr 04/24/17 09:41 04/24/17 09:43 04/24/17 15:59 Temperature 98.1 F 98.5 F Pulse Rate 67 71 Respiratory Rate 15 15 Blood Pressure 155/65 111/60 O2 Sat by Pulse Oximetry 96 96 96 04/24/17 19:38 04/24/17 23:13 04/25/17 03:24 Temperature 97.6 F 98.4 F 97.8 F Pulse Rate 86 70 65 Respiratory Rate 15 14 16 Blood Pressure 114/70 124/62 116/67 O2 Sat by Pulse Oximetry 97 97 96 04/25/17 07:25 04/25/17 07:47 Temperature 98.6 F Pulse Rate 79 Respiratory Rate 15 Blood Pressure 135/79 O2 Sat by Pulse Oximetry 93 93 General appearance: Present: cooperative, A&O X 3, no acute distress, answers questions appropriately - Head Head exam: Present: atraumatic, normocephalic - Eye Eye exam: Present: PERRL, conjuntiva pink, sclera anicteric Pupils: Present: PERRL - Extremities Exam Extremities exam: Present: warm, radial pulses palpable and symetrical. Absent : calf tenderness, cyanotic, pedal edema - Neurological Exam Sensorimotor examination: Present: other (decreased distally for light touch, pin prick and vibration) Motor Examination: Present: grossly full strength in all extremities Motor examination - left side: 5/5: deltoids (appropriate for age and condition) , biceps, triceps, wrist flexion, wrist extension, hip flexors, real time operator, quadriceps , tibialis Anterior, toe extension (EHL), plantarflexion Sensation intact: Present: other (decreased distally in upper and lower extremities) Reflex and gait examination: other (areflexia) Mental Status Examination: Present: awake, alert, oriented to person, oriented to place, oriented to time, follows commands appropriately, answers questions appropriately, no agnosia, no aphasia, no aproxia Cranial nerve examination: Present: PERRL, EOMI, visual mendiola intact, corneal reflexes brisk symmetrically, sensory to face intact, mastication intact, no facial asymmetry is present, no dysarthria, hearing is intact symmetrically, soft palate elevates bilaterally upon phonation, gag reflex intact, flexes SCM and trapezius muscles symmetrically with full power, tongue protrudes midline, no atrophy or facial fasiculations present Cerebellar examination: Present: no dysmetria, performs finger to nose and heel to yung symmetrically without ataxia, no gait ataxia, no truncal ataxia, no difficulty with rapid alternating movements Results - Laboratory Findings CBC and BMP: 04/25/17 00:55 04/25/17 06:09 Abnormal lab findings: Abnormal lab results Hct 35.1 % (35.3-44.9) L 04/25/17 00:55 Sodium 131 mEq/L (136-145) L 04/25/17 06:09 BUN 5 mg/dL (7-20) L 04/25/17 06:09 Calculated Osmolality 269 (280-300) L 04/25/17 06:09 Calcium 8.4 mg/dL (8.6-10.8) L 04/25/17 06:09 Magnesium 1.5 mg/dL (1.6-2.6) L 04/24/17 06:03 Urine Clarity Cloudy (Clear) A 04/24/17 07:04 Urine Ketones Trace mg/dL (Negative) H 04/24/17 07:04 Urine Blood Trace (Negative) H 04/24/17 07:04 Ur Squamous Epith Cells Many per lpf (None-Few) H 04/24/17 07:04 Consult Discharge Plan - Plan Referrals: Foster Villarreal MD [Primary Care Provider] -
[2017-04-25 14:26] LABS: BUN/Creatinine Ratio 12 (6-26); Blood Urea Nitrogen 8 mg/dL (7-20); Calcium 8.5 mg/dL (8.6-10.8); Carbon Dioxide 29 mEq/L (19-29); Chloride 98 mEq/L (98-109); Glucose 102 mg/dL (70-99); Osmolality,Calculated 271 (280-300); Potassium 3.6 mEq/L (3.5-4.5); Sodium 131 mEq/L (136-145); eGFR For African Americans > 60 (> 60); eGFR For Non-African Americans > 60 (> 60)
--- NOTE | 2017-04-25 18:01 | Internal Med Progress Note ---
Date of Encounter: 04/25/17 Time of Encounter: 12:00 - Assessment and plan (1) Dizziness Current Visit: Yes Status: Acute Assessment and plan: patient reports dizziness, if she sits up or stands up she feels a heavy pressure on her head that bends her heads forward and she then falls. no vertigo. no chest pain. no shortness of breath. could be secondary to hyponatremia and side effect from trileptal. will continue gabapentin. hold trileptal. if dizziness persist in AM. i will order ct head. (2) Hyponatremia Current Visit: Yes Status: Acute Assessment and plan: Hypovolemic hyponatremia. Patient has seizure and was prescribed recently Trileptal. She was taking before dilantin. Soon after taking Trileptal, she felt dizzy, weak, and mild nausea. In our ED, her Na was 123. Received IV fluids. Na is 131 today. orthostatics are negative. stop IV fluids. continue fluid restriction. holding trileptal. close monitor. (3) History of seizures Current Visit: Yes Status: Chronic Assessment and plan: Appreciate neurology input. Stop Trileptal. Start dilantin. f/u in neurology clinic. (4) Hypertension Current Visit: Yes Status: Acute Assessment and plan: Bp is adequate. hold lisinopril home dose. Qualifiers: Hypertension type: essential hypertension Qualified Code(s): I10 - Essential (primary) hypertension (5) CAD (coronary artery disease) Current Visit: Yes Status: Chronic Assessment and plan: stable. continue home meds. Qualifiers: Coronary Disease-Associated Artery/Lesion type: [place] artery [place] vs. transplanted heart: [place] heart Associated angina: without angina Qualified Code(s): I25.10 - Atherosclerotic heart disease of [place] coronary artery without angina pectoris (6) Neuropathy Current Visit: Yes Status: Chronic Assessment and plan: continue gabapentin - Subjective Interval history: patient reports dizziness, if she sits up or stands up she feels a heavy pressure on her head that bends her heads forward and she then falls. no vertigo. no chest pain. no shortness of breath. - Constitutional Vitals: Temp Pulse Resp BP Pulse Ox 99 F 68 16 127/76 95 04/25/17 15:21 04/25/17 15:21 04/25/17 15:21 04/25/17 15:21 04/25/17 15:21 General appearance: Present: cooperative, A&O X 3, pleasant, no acute distress, answers questions appropriately Exam: patient sit up and developed mild dizziness, she lean back immediately. - Neck Neck exam general surgery: Present: supple, trachea midline. Absent: lymphadenopathy - Respiratory Respiratory exam: Present: CTAB - Cardiovascular Cardiovascular exam: Present: RRR - GI/Abdominal GI/Abdominal exam: Present: normal bowel sounds, soft. Absent: distended, tenderness - Extremities Exam Extremities exam: Absent: pedal edema - Back Exam Back exam: Absent: CVA tenderness (L), CVA tenderness (R) - Neurological Exam Neurological exam: Present: alert, oriented X3. Absent: facial droop, speech deficit - Skin Skin exam: Absent: rash Internal Medicine: Result - Labs CBC & Chem 7: 04/25/17 00:55 04/25/17 13:19 Labs: Short CBC 04/25/17 Range/Units 00:55 WBC 6.4 (4.3-11.1) K/mcL Hgb 12.0 D (11.5-15.4) g/dL Hct 35.1 L (35.3-44.9) % Plt Count 220 (140-400) K/mcL Neutrophils # 4.4 (1.6-8.9) K/mcL BMP 04/24/17 04/25/17 04/25/17 18:15 00:55 06:09 Sodium 126 L 126 L 131 L Potassium 3.3 L 3.3 L 3.5 Chloride 95 L 96 L 98 Carbon Dioxide 25 27 27 BUN 6 L 6 L 5 L Creatinine 0.66 0.59 0.63 Glucose 156 H 94 96 Calcium 8.5 L 8.5 L 8.4 L 04/25/17 13:19 Sodium 131 L Potassium 3.6 Chloride 98 Carbon Dioxide 29 BUN 8 Creatinine 0.69 Glucose 102 H Calcium 8.5 L Consult Discharge Plan - Plan Referrals: Foster Villarreal MD [Primary Care Provider] -
[2017-04-25] MEDS: Gabapentin 300 MG CAPSULE PO SCH (21:50)
[2017-04-26] MEDS: *HR* Heparin 5,000 UNIT/ML VIAL SQ SCH (05:44)
[2017-04-26 05:56] LABS: Basophils % 0.4 %; Eosinophils # 0.1 K/mcL (0.0-0.6); Eosinophils % 0.9 %; Hematocrit 37.7 % (35.3-44.9); Immature Granulocytes % 0.1 % (0-4); Lymphocytes # 1.6 K/mcL (0.6-4.6); Lymphocytes % 23.3 %; Mean Corpuscular HGB Conc 34.5 g/dL (31.6-35.5); Mean Corpuscular Hemoglobin 31.6 pg (28.0-33.3); Mean Corpuscular Volume 91.5 fL (83.0-100.0); Mean Platelet Volume 9.5 fL (9.4-12.4); Monocytes # 0.7 K/mcL (0.0-1.3); Monocytes % 10.5 %; Neutrophils # 4.5 K/mcL (1.6-8.9); Platelet Count 222 K/mcL (140-400); Red Blood Count 4.12 M/mcL (3.82-4.97); Red Cell Distribution Width 12.2 % (11.5-14.5); Segmented Neutrophils % 64.8 %
[2017-04-26 06:13] LABS: BUN/Creatinine Ratio 17 (6-26); Blood Urea Nitrogen 11 mg/dL (7-20); Calcium 8.7 mg/dL (8.6-10.8); Carbon Dioxide 27 mEq/L (19-29); Chloride 102 mEq/L (98-109); Glucose 90 mg/dL (70-99); Magnesium 1.8 mg/dL (1.6-2.6); Osmolality,Calculated 279 (280-300); Potassium 3.4 mEq/L (3.5-4.5); Sodium 135 mEq/L (136-145); eGFR For African Americans > 60 (> 60); eGFR For Non-African Americans > 60 (> 60)
[2017-04-26 07:31] VITALS: BP 142/69
[2017-04-26] MEDS: Aspirin Enteric Coated 81 MG Tablet PO SCH (07:38)
[2017-04-26] MEDS: Loratadine 10 MG TABLET PO SCH (07:38)
--- NOTE | 2017-04-26 13:40 | Discharge Summary ---
Date of Encounter: 04/26/17 Time of Encounter: 13:30 - Discharge Diagnosis (1) Dizziness Priority: Primary Status: Acute (2) Hyponatremia Priority: Primary Status: Acute (3) History of seizures Priority: Secondary Status: Chronic (4) Hypertension Priority: Secondary Status: Chronic Qualifiers: Hypertension type: essential hypertension Qualified Code(s): I10 - Essential (primary) hypertension (5) CAD (coronary artery disease) Priority: Secondary Status: Chronic Qualifiers: Coronary Disease-Associated Artery/Lesion type: [place] artery [place] vs. transplanted heart: [place] heart Associated angina: without angina Qualified Code(s): I25.10 - Atherosclerotic heart disease of [place] coronary artery without angina pectoris (6) Neuropathy Priority: Secondary Status: Chronic - Discharge Medications Prescriptions: Phenytoin ER [Dilantin ER] 300 mg PO HS #90 Home Medications: Aspirin [Lo-Dose Aspirin EC] 81 mg PO DAILY 05/05/16 [History] Cetirizine HCl [Zyrtec] 10 mg PO DAILY 05/05/16 [History] Esomeprazole Magnesium [Nexium] 40 mg PO DAILY 05/05/16 [History] LORazepam [Ativan] 0.5 mg PO DAILY PRN 05/05/16 [History] Rosuvastatin [Crestor] 40 mg PO DAILY 05/05/16 [History] Ergocalciferol (VITAMIN D2) [Vitamin D2] 50,000 unit PO MO 04/24/17 [History] Polyethylene Glycol 3350 [MiraLAX] 17 gm PO DAILY 04/24/17 [History] Potassium Chloride [Klor-Con 10] 10 meq PO BID 04/24/17 [History] Phenytoin ER [Dilantin ER] 300 mg PO HS #90 04/26/17 [Rx] Allergies/Adverse Reactions: Allergies cephalexin [From Keflex] Allergy (Verified 05/05/16 11:23) See Comments clarithromycin [From Biaxin] Allergy (Verified 01/24/16 16:17) See Comments acetaminophen [From Tylenol-Codeine #3] Adverse Reaction (Verified 05/05/16 11: 23) Dizziness codeine [From Tylenol-Codeine #3] Adverse Reaction (Verified 05/05/16 11:23) Dizziness Date of admission: 04/24/17 08:32 Primary care physician: Foster Villarreal MD Consults: 04/24/17 10:33 Consult to Occupational Therapy [CONS] Routine Comment: Evaluate, develop and implement POC Reason for Consult: giat instability due to neuropathy Consult to Physical Therapy [CONS] Routine Comment: Evaluate, develop and implement POC Reason for Consult: gait instabitlity due to neuropoathy 04/26/17 11:[address] Researcher [CONS] Routine Reason for SW Consult: ECF placement. pt requesting a ECF in [place] or near - Patient Status Disposition: Home Health Service Condition: Good Functional capacity at discharge: independent ambulation Overall status at discharge: patient is progressing back to baseline - Discharge Instructions Instructions: Phenytoin (By mouth), Potassium Content of Foods List (DC) Follow Up With: Foster Villarreal MD [Primary Care Provider] - 05/03/17 10:00 am Additional Instructions: check your blood pressure twice daily, same time in the morning and evening. write down numbers and bring record to doctor's appointment. - Diet and Activity Activity: as per physical therapy Diet: low fat, low cholesterol Interval History: patient denies any dizziness. she feels better this morning. Hospital course: Ms. Nicolas is a 86 year old female with past medical history of seizure, hypertension and hyperlipidemia who presented with a chief complaint of dizziness, and generalized weakness. She was found to have a sodium of 123 likely secondary to recently starting Trileptal. She received IV fluids, Trileptal was changed for Dilantin and she was started on fluid restriction with improvement of her hyponatremia. Sodium was 135. At discharge, all her symptoms resolved. PT OT assess the patient and recommended PT at home. PLAN: Her lisinopril was stopped due to low normal BP. She patient instructed to check her blood pressure daily. Repeat BMP 04/29/17. Follow-up in the neurology clinic as scheduled. - Time Spent with Patient Total time spent providing and/or coordinating discharge services: - Constitutional Vitals: Temp Pulse Resp BP Pulse Ox 98.5 F 74 17 142/69 95 04/26/17 07:26 04/26/17 07:26 04/26/17 07:26 04/26/17 07:26 04/26/17 07:26 General appearance: Present: cooperative, A&O X 3, pleasant, no acute distress, answers questions appropriately - Neck Neck exam general surgery: Present: supple, trachea midline. Absent: lymphadenopathy - Respiratory Respiratory exam: Present: CTAB - Cardiovascular Cardiovascular exam: Present: RRR - GI/Abdominal GI/Abdominal exam: Present: normal bowel sounds, soft. Absent: distended, tenderness - Extremities Exam Extremities exam: Absent: pedal edema - Back Exam Back exam: Absent: CVA tenderness (L), CVA tenderness (R) - Neurological Exam Neurological exam: Present: alert, oriented X3, no focal deficits, strengths equal and symetr throughout. Absent: facial droop, speech deficit - Skin Skin exam: Absent: rash
--- NOTE | 2017-04-26 13:47 | Physician Discharge Referral ---
Home Health/Hosp Referral Info Transfer to: Home Health Attending Provider: alyson Provider in Charge Post Discharge: PCP - Diagnosis (1) Dizziness Status: Acute (2) Hyponatremia Status: Acute (3) History of seizures Status: Chronic (4) Hypertension Status: Acute (5) CAD (coronary artery disease) Status: Chronic (6) Neuropathy Status: Chronic - Respiratory Orders Smoking Cessation: Smoking cessation has been advised. For more information, call the [place] Tobacco Quit Line at 7-392-ERVK-NOW. - Diet/Nutrition Diet/Nutrition Orders: Cardiac - Activity Activity Orders: Ambulate - Services Needed Following services are medically necessary services: Physical Therapy, Occupational Therapy - Transfer Medications Prescriptions: Phenytoin ER [Dilantin ER] 300 mg PO HS #90 Home Medications: Aspirin [Lo-Dose Aspirin EC] 81 mg PO DAILY 05/05/16 [History] Cetirizine HCl [Zyrtec] 10 mg PO DAILY 05/05/16 [History] Esomeprazole Magnesium [Nexium] 40 mg PO DAILY 05/05/16 [History] LORazepam [Ativan] 0.5 mg PO DAILY PRN 05/05/16 [History] Rosuvastatin [Crestor] 40 mg PO DAILY 05/05/16 [History] Ergocalciferol (VITAMIN D2) [Vitamin D2] 50,000 unit PO MO 04/24/17 [History] Polyethylene Glycol 3350 [MiraLAX] 17 gm PO DAILY 04/24/17 [History] Potassium Chloride [Klor-Con 10] 10 meq PO BID 04/24/17 [History] Phenytoin ER [Dilantin ER] 300 mg PO HS #90 04/26/17 [Rx] Allergies/Adverse Reactions: Allergies cephalexin [From Keflex] Allergy (Verified 05/05/16 11:23) See Comments clarithromycin [From Biaxin] Allergy (Verified 01/24/16 16:17) See Comments acetaminophen [From Tylenol-Codeine #3] Adverse Reaction (Verified 05/05/16 11: 23) Dizziness codeine [From Tylenol-Codeine #3] Adverse Reaction (Verified 05/05/16 11:23) Dizziness Certification: Further, I certify that my clinical findings support that this patient is homebound (i.e. absences from home require considerable and taxing effort and are for medical reasons or hindu services or infrequently or short duration when for other reasons) because: Homebound Reason: Patient requires assistance of a person or device to safely leave home, Leaving home requires considerable and taxing effort due to condition Attestation: My signature below is to certify that this patient is under my care and that I, or nurse practitioner, or a physician's surgical first assistant working with me, has a face-to -face encounter with this patient.
--- NOTE | 2017-04-26 14:27 | Electrocardiograph Report ---
[place] [id number] Test Date: 2017-04-24 Pat Name: Venus Nicolas Department: 102 Room: 3B Gender: F Record Center Specialist: Vineet : 1930 Requested By: Clarke Hardin Order Number: [id number] Reading MD: Vaughn Pantoja MD Measurements Intervals [place] Rate: 68 P: 61 MT: 167 QRS: -1 QRSD: 89 T: 30 QT: 428 QTc: 445 Interpretive Statements SINUS RHYTHM Electronically Signed On 04-26-2017 14:26:10 EDT by Vaughn Pantoja MD
== END 2017-04-26 15:12 | disposition home health service (06) ==
LOC: 3BNU 04:27 → EMEROO 04:27 → SUATTDRO 08:32 → 3BNU 09:35
PROVIDERS: ADMIT Internal Medicine; ATTEND Internal Medicine